=== PATIENT | male | born 1980 | race Caucasian/White ===

== ENCOUNTER 2017-06-16 16:49 | Emergency (ER) | payer BC, OTHER ==
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
[2017-06-16] MEDS ORDERED: TDAP ADULT 0.5 ML INJ (BOOSTRIX) IM ONE (17:55)
[2017-06-16 18:04] LABS: PLATELET COUNT 225 10^3/uL (150-400)
[2017-06-16 19:29] VITALS: BP 144/79
== END 2017-06-16 19:20 | disposition home or self-care (01) ==
DX: S92.512A Displaced fracture of proximal phalanx of left lesser toe(s), initial encounter for closed fracture (principal); S50.312A Abrasion of left elbow, initial encounter; S20.91XA Abrasion of unspecified parts of thorax, initial encounter; S80.212A Abrasion, left knee, initial encounter; S30.811A Abrasion of abdominal wall, initial encounter; V18.4XXA Pedal cycle driver injured in noncollision transport accident in traffic accident, initial encounter; Y92.410 Unspecified street and highway as the place of occurrence of the external cause; Y99.8 Other external cause status; Y93.55 Activity, bike riding
CPT/HCPCS: L4386